=== PATIENT | female | born 1985 | race African-American/Black ===

== ENCOUNTER 2016-12-13 09:05 | Inpatient (IN) | payer MEDICAID ==
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
[2016-12-13 09:59] LABS: BACTERIA 1+ /hpf (NONE SEEN); COLOR YELLOW; LEUKOCYTE ESTERASE,URINE 2+ (NEGATIVE); MUCUS 2+ /lpf (NONE-1+); NITRITE,URINE POSITIVE (NEGATIVE); WBC,URINE 50-182 /hpf (0-3)
[2016-12-13] MEDS ORDERED: NS 1,000 ML IV ONE (10:19)
[2016-12-13] MEDS ORDERED: KETAMINE 100 MG/10 ML SYR IVP ONE (10:20)
[2016-12-13 10:42] LABS: % IMMATURE GRANULYOCYTES 0.2 % (0.0-1.1); ABSOLUTE IMMATURE GRANULOCYTES 0.02 10^3/uL (0.00-0.10); ADD DIFF? NO; ADD MORPH? NO; ADD SCAN? NO; ATYPICAL LYMPHOCYTE FLAG 0 (0-99); FRAGMENT RBC FLAG 0 (0-99); HEMATOCRIT 41.9 % (38.0-47.0); HEMOGLOBIN 13.7 g/dL (12.6-16.3); LEFT SHIFT FLG 0 (0-99); LIPEMIA HEMOLYSIS FLAG 80 (0-99); MEAN CELL HEMOGLOBIN 26.2 pg (27.9-34.1); MEAN CELL HEMOGLOBIN CONCENTR. 32.7 g/dL (32.4-36.7); MEAN CELL VOLUME 80.3 fL (81.5-99.8); MEAN PLATELET VOLUME 9.2 fL (8.7-11.7); PLATELET CLUMPS FLAG 10 (0-99); PLATELET COUNT 226 10^3/uL (150-400); RED BLOOD CELL COUNT 5.22 10^6/uL (4.18-5.33); RED CELL DISTRIBUTION WIDTH 14.6 % (11.5-15.2)
[2016-12-13 10:51] LABS: APTT 28.6 SEC (23.0-38.0); INR 1.21 (0.83-1.16); PROTIME(PATIENT) 15.3 SEC (12.0-15.0)
[2016-12-13 10:57] LABS: ALANINE AMINOTRANSFERASE 58 IU/L (9-52); ALBUMIN 3.8 g/dL (3.5-5.0); ALKALINE PHOSPHATASE 92 IU/L (38-126); ANION GAP 15 mEq/L (8-16); ASPARTATE AMINOTRANSFERASE 35 IU/L (14-46); BILIRUBIN,TOTAL 0.7 mg/dL (0.1-1.4); BILIRUBIN-CONJUGATED 0.4 mg/dL (0.0-0.5); BILIRUBIN-UNCONJUGATED 0.3 mg/dL (0.0-1.1); CALCIUM 8.6 mg/dL (8.5-10.4); CARBON DIOXIDE 20 mEq/l (22-31); CHLORIDE 104 mEq/L (97-110); CREATININE 0.9 mg/dL (0.6-1.0); GLOMERULAR FILTRATION RATE > 60; GLUCOSE 92 mg/dL (70-100); POTASSIUM 3.6 mEq/L (3.5-5.2); SODIUM 139 mEq/L (134-144); TOTAL PROTEIN 6.7 g/dL (6.3-8.2)
[2016-12-13] MEDS ORDERED: IOPAMIDOL (ISOVUE-300) 100 ML BTL ONE (11:04)
[2016-12-13] MEDS ORDERED: fentaNYL 100 MCG/2 ML INJ IVP ONE (11:11)
[2016-12-13] MEDS ORDERED: ONDANSETRON DISINTEGRATING 4 MG TAB PO PRN ×2 (14:06→14:18)
[2016-12-13] MEDS ORDERED: HYDROmorphONE/DILAUDID 1 MG/ML INJ IVP PRN (14:14)
[2016-12-13] MEDS ORDERED: ACETAMINOPHEN 325 MG TAB PO SCH (14:15)
[2016-12-13] MEDS ORDERED: LR 1,000 ML IV SCH (14:30)
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
[2016-12-13] MEDS ORDERED: HYDROmorphone HCL/NS/PF 0.4 MG/2 ML SYR IVP PRN (15:37)
[2016-12-13] MEDS: KETOROLAC 30 MG/1 ML SDV IVP SCH ×2 (16:07→20:01)
[2016-12-13] MEDS: CYCLOBENZAPRINE 10 MG TAB PO PRN ×2 (16:07→20:15)
[2016-12-13] MEDS: ACETAMINOPHEN 500 MG TAB PO SCH ×2 (16:07→21:51)
[2016-12-13] MEDS: LR 1,000 ML IV SCH (17:03)
[2016-12-14] MEDS: LR 1,000 ML IV SCH (01:30)
[2016-12-14] MEDS: KETOROLAC 30 MG/1 ML SDV IVP SCH ×2 (01:58→09:12)
[2016-12-14 04:40] LABS: ANION GAP 7 mEq/L (8-16); CALCIUM 7.8 mg/dL (8.5-10.4); CARBON DIOXIDE 23 mEq/l (22-31); CHLORIDE 108 mEq/L (97-110); CREATININE 0.7 mg/dL (0.6-1.0); GLOMERULAR FILTRATION RATE > 60; GLUCOSE 109 mg/dL (70-100); POTASSIUM 3.8 mEq/L (3.5-5.2); SODIUM 138 mEq/L (134-144)
[2016-12-14 04:41] LABS: % IMMATURE GRANULYOCYTES 0.5 % (0.0-1.1); ABSOLUTE IMMATURE GRANULOCYTES 0.03 10^3/uL (0.00-0.10); ADD DIFF? NO; ADD MORPH? NO; ADD SCAN? NO; ATYPICAL LYMPHOCYTE FLAG 0 (0-99); FRAGMENT RBC FLAG 0 (0-99); HEMATOCRIT 33.9 % (38.0-47.0); HEMOGLOBIN 10.7 g/dL (12.6-16.3); LEFT SHIFT FLG 0 (0-99); LIPEMIA HEMOLYSIS FLAG 80 (0-99); MEAN CELL HEMOGLOBIN 25.7 pg (27.9-34.1); MEAN CELL HEMOGLOBIN CONCENTR. 31.6 g/dL (32.4-36.7); MEAN CELL VOLUME 81.5 fL (81.5-99.8); MEAN PLATELET VOLUME 9.8 fL (8.7-11.7); PLATELET CLUMPS FLAG 0 (0-99); PLATELET COUNT 175 10^3/uL (150-400); RED BLOOD CELL COUNT 4.16 10^6/uL (4.18-5.33); RED CELL DISTRIBUTION WIDTH 14.6 % (11.5-15.2)
[2016-12-14] MEDS: ACETAMINOPHEN 500 MG TAB PO SCH ×3 (05:59→23:39)
[2016-12-14] MEDS: CYCLOBENZAPRINE 10 MG TAB PO PRN ×3 (06:00→23:40)
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
[2016-12-14] MEDS: CIPROFLOXACIN 500 MG TAB PO SCH ×2 (10:20→19:52)
[2016-12-14] MEDS: HYDROmorphONE/DILAUDID 2 MG TAB PO PRN ×3 (10:20→19:52)
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
[2016-12-14] MEDS ORDERED: ONDANSETRON 4 MG/2 ML VIAL IVP PRN ×2 (12:20→12:22)
[2016-12-14] MEDS: IBUPROFEN 200 MG TAB PO PRN ×2 (13:23→19:53)
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
[2016-12-14 23:27] VITALS: RESP 18
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
[2016-12-15] MEDS: ACETAMINOPHEN 500 MG TAB PO SCH (06:18)
[2016-12-15] MEDS: IBUPROFEN 200 MG TAB PO PRN (06:18)
[2016-12-15 07:36] VITALS: BP 114/71; PULSE 96; TEMP 98.7; O2SAT 97
[2016-12-15] MEDS: CIPROFLOXACIN 500 MG TAB PO SCH (09:47)
[2016-12-15] MEDS: CYCLOBENZAPRINE 10 MG TAB PO PRN (09:48)
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
== END 2016-12-15 11:35 | disposition home or self-care (01) | DRG 699 ==
LOC: EDUNIT# → EEVIPCON 09:05 → F3N 15:35 → OBSVTOIN 12-14 16:25
PROVIDERS: ADMIT Surgery; ATTEND Surgery
DX: S37.052A Moderate laceration of left kidney, initial encounter (principal); Y04.0XXA Assault by unarmed brawl or fight, initial encounter; T74.11XA Adult physical abuse, confirmed, initial encounter; Y07.03 Male partner, perpetrator of maltreatment and neglect; Y92.89 Other specified places as the place of occurrence of the external cause; N39.0 Urinary tract infection, site not specified
CPT/HCPCS: 92523-GN; 96365; 97116-GP; 97161-GP; 97165-GO; 97530-GP; G0378; J0696; J1170; J1885; J2405; J3010; Q9967

== ENCOUNTER 2017-07-21 17:05 | Emergency (ER) | payer MEDICAID ==
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
[2017-07-21 17:32] VITALS: BP 139/101
== END 2017-07-21 17:42 ==
LOC: EDUNIT#

== ENCOUNTER 2017-10-16 09:52 | Emergency (ER) | payer MEDICAID ==
[2017-10-16 09:55] VITALS: BP 114/77
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
== END 2017-10-16 10:15 ==
DX: S05.11XD Contusion of eyeball and orbital tissues, right eye, subsequent encounter (principal); O9A.219 Injury, poisoning and certain other consequences of external causes complicating pregnancy, unspecified trimester; Z3A.00 Weeks of gestation of pregnancy not specified; Y09 Assault by unspecified means

== ENCOUNTER 2018-01-12 12:35 | Observation (INO) | payer MEDICAID ==
[2018-01-12 13:37] LABS: PLATELET COUNT 219 10^3/uL (150-400)
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
[2018-01-12 20:02] LABS: HEPATITIS B SURFACE ANTIGEN NEGATIVE (NEGATIVE)
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
[2018-01-13] MEDS ORDERED: CEPHALEXIN 250 MG CAP PO SCH (10:00)
== END 2018-01-13 16:25 | disposition home or self-care (01) ==
LOC: FLD 12:35 → EEVIPCON 12:35
PROVIDERS: ADMIT Obstetrics & Gynecology; ATTEND Obstetrics & Gynecology
DX: Z03.79 Encounter for other suspected maternal and fetal conditions ruled out (principal); Z3A.19 19 weeks gestation of pregnancy; Z91.419 Personal history of unspecified adult abuse
CPT/HCPCS: 76805; G0378; 80305

== ENCOUNTER 2018-02-16 18:42 | Observation (INO) | payer MEDICAID ==
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
== END 2018-02-16 20:08 | disposition home or self-care (01) ==
LOC: FLD 18:42
PROVIDERS: ADMIT Obstetrics & Gynecology; ATTEND Obstetrics & Gynecology
DX: O76 Abnormality in fetal heart rate and rhythm complicating labor and delivery (principal); Z3A.24 24 weeks gestation of pregnancy

== ENCOUNTER 2018-05-27 14:22 | Emergency (ER) | payer MEDICAID ==
[2018-05-27 14:37] VITALS: BP 122/80
--- NOTE | 2018-05-27 14:43 | EDPHY ---
H & P Stated Complaint: Tooth ache Time Seen by Provider: 05/27/18 14:42 - Personal History LMP (Females 10-55): Current Tetanus/Diphtheria Vaccine: Yes Tetanus Vaccine Date: 2011 - Medical/Surgical History Hx Asthma: No Hx Chronic Respiratory Disease: No Hx Diabetes: No Hx Cardiac Disease: No Hx Renal Disease: No Hx Cirrhosis: No Hx Alcoholism: No Hx HIV/AIDS: No Hx Splenectomy or Spleen Trauma: No Other PMH: Kidney Laceration - Social History Smoking Status: Former smoker Constitutional: Initial Vital Signs Temperature (C) 36.6 C 05/27/18 14:35 Heart Rate 100 05/27/18 14:35 Respiratory Rate 18 05/27/18 14:35 Blood Pressure 122/80 H 05/27/18 14:35 O2 Sat (%) 96 05/27/18 14:35 O2 Delivery Mode Room Air Allergies/Adverse Reactions: No Known Allergies Allergy (Verified 05/27/18 14:37) Home Medications: Medication Instructions Recorded 02/04/18 Vit27&Calcium/Iron/FA 1 each PO DAILY 02/16/18 [ Rx 1 Tablet (RX)] Cephalexin [Keflex (RX)] 500 mg PO TID #30 cap 05/27/18 Medical Decision Making ED Course/Re-evaluation: CHIEF COMPLAINT: Tooth ache HISTORY OF PRESENT ILLNESS: The patient is a 33 y/o female who is very complaining of a toothache. She is less concerned about the pain, as she is about the infection. She denies recent trauma or injury. No fever, headache, body aches, lightheadedness, chest pain, heart palpitations, shortness of breath, cough, abdominal pain, urinary or bowel complaints, numbness, paresthesias. REVIEW OF SYSTEMS: A 10 point review of systems was performed and is negative with the exception of the elements mentioned in the history of present illness. PHYSICAL EXAM: HR, BP, O2 Sat, RR. Temp noted General Appearance: Alert, well hydrated, appropriate, and non-toxic appearing. Head: Atraumatic without scalp tenderness or obvious injury Eyes: Pupils equal, round, reactive to light and accommodation, EOMI, no trauma , no injection. Ears: Clear bilaterally, no perforation, normal landmarks Nose: Atraumatic, no rhinorrhea, clear. Throat: Mild erythema and inflammation of her left last molar. There is no erythema or exudates, no lesions, normal tonsils, mucus membranes moist. Neck: Supple, 2+ carotid upstroke, nontender, no lymphadenopathy. Respiratory: No retractions, no distress, no wheezes, and no accessory muscle use. Lungs are clear to auscultation bilaterally. Cardiovascular: Regular rate and rhythm, no murmurs, rubs, or gallops. Bilateral carotid, radial, dorsalis pedis, and posterior tibial pulses intact. Good capillary refill all extremities. Gastrointestinal: Abdomen is soft, nontender, non-distended, no masses, no rebound, no guarding, no peritoneal signs. Musculoskeletal: Normal active ROM of all extremities, atraumatic. Neurological: Alert, appropriate, and interactive. The patient has normal DTRs and non-focal cranial nerves, motor, sensory, and cerebellar exam. Skin: No rashes, good turgor, no nodules on palpation. Past medical history: Denies Past surgical history: Mercer tooth extraction Family history: Denies Social history: Single, not employed, transient DIAGNOSTICS/PROCEDURES/CRITICAL CARE TIME: Not indicated DIFFERENTIAL DIAGNOSIS: The differential diagnosis for the patient's toothache included but was not limited to dental infection, dental abscess, dental trauma, gingivitis. MEDICAL DECISION MAKING: The patient is a 33 y/o female who is very presenting with a toothache. She is less concerned about the pain, as she is about the infection. On exam there is mild erythema and inflammation of her left last molar. I have prescribed her Keflex and advised her to follow up with a dentist. Return precautions provided; patient is comfortable with this plan. Departure - Departure Disposition: Home, Routine, Self-Care Clinical Impression: Tooth pain, Tooth infection Condition: Good Instructions: Toothache (ED) Additional Instructions: 1. Take Keflex as prescribed. 2. Follow-up with your dentist within one week. 3. Return to the ED for fever, difficulty swallowing, increase in swelling or other concerns. Referrals: [facility] [Outside] - As per Instructions Prescriptions: Cephalexin [Keflex (RX)] 500 mg PO TID #30 cap Report Scribed for: Ernie Reich Report Scribed by: Daysi Sharma Date of Report: 05/27/18 Time of Report: 14:44
== END 2018-05-27 14:52 | disposition home or self-care (01) ==
DX: K04.7 Periapical abscess without sinus (principal); K08.89 Other specified disorders of teeth and supporting structures

== ENCOUNTER 2018-05-29 13:05 | Inpatient (IN) | payer MEDICAID ==
[2018-05-29] MEDS ORDERED: MISOPROSTOL 200 MCG TAB PR PRN (14:14)
[2018-05-29] MEDS ORDERED: LIDOCAINE 1% 300 MG/30 ML SDV SC PRN (14:14)
[2018-05-29] MEDS ORDERED: OLIVE OIL 118 ML BTL MISC PRN (14:14)
[2018-05-29] MEDS ORDERED: OXYTOCIN/RINGERS LACTATE 1,000 ML IV PRN (14:14)
[2018-05-29] MEDS ORDERED: EPSOM SALT 454 GM TP PRN (14:14)
[2018-05-29] MEDS ORDERED: IBUPROFEN 600 MG TAB PO PRN (14:14)
[2018-05-29 14:32] LABS: PLATELET COUNT 250 10^3/uL (150-400)
[2018-05-29] MEDS ORDERED: MISOPROSTOL 200 MCG TAB ONE (14:50)
[2018-05-29] MEDS ORDERED: TERBUTALINE SULFATE 1 MG/ML VIAL ONE (14:50)
[2018-05-29] MEDS ORDERED: LIDOCAINE 1% 300 MG/30 ML SDV ONE (14:50)
[2018-05-29] MEDS ORDERED: OLIVE OIL 118 ML BTL MISC ONE (14:50)
[2018-05-29] MEDS ORDERED: AMMONIA AROMATIC 1 EACH AMP IH ONE (14:50)
[2018-05-29] MEDS ORDERED: OXYTOCIN 10 UNIT/ML VIAL ONE (14:50)
[2018-05-29] MEDS ORDERED: OXYTOCIN/RINGERS LACTATE 30 UNIT/500 ML BAG IV ONE (16:08)
[2018-05-29] MEDS: LR 1,000 ML IV PRN ×2 (16:20→20:28)
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
[2018-05-29] MEDS ORDERED: LR 500 ML IV PRN (17:59)
[2018-05-29] MEDS ORDERED: OXYTOCIN/RINGERS LACTATE 500 ML IV SCH (18:00)
--- NOTE | 2018-05-29 22:25 | OBPROG ---
Labor Progress Note Assessment/Plan: Assessment: 33 at 39 wk, undergoing pitocin augmentation. Slow progress. Plan: AROM performed - clear fluid. Anticipate vag delivery. Bree Rodas MD, FACOG 05/29/18 22:23 Subjective/Intrapartum Course: 05/29/18 22:25 Pt feeling contractions more. Frustrated labor is taking so long for her. Agrees to proceed with AROM. Objective: 05/29/18 14:27 Patient ABO/Rh O POSITIVE 05/29/18 14:27 36.6 16 82 119/75 140 mod variability, occasional variable and early appearing decels. SVE 4/70/-3 AROM clear - SVE Dilation (cm): 4 Effacement (%): 75 Station: -3 Membranes: AROM Amniotic Fluid Color: Clear - Contraction Pattern Assessment Current Contraction Pattern: Regular - FHR Assessment Ernandez FHR (bpm): 140 FHR Pattern Variability: Moderate FHR Category: 1 - Procedures Non-surgical Procedures: Amniotomy (clear) Oxytocin Orders Assessment - Pre-Induction/Augmentation Assessment Gestational Age: 39 week(s) and 1 day(s) ICD10 Worksheet Patient Problems: Problems Problem Status Onset Irregular contractions Acute Acute Skin infection Acute Vaginal bleeding in patient at less than 20 weeks gestation Acute - ICD10 Problem Qualifiers (1) Irregular contractions
[2018-05-29] MEDS ORDERED: BUPIVACAINE 0.25% 10 ML SDV ONE (22:35)
[2018-05-29] MEDS ORDERED: fentaNYL 200 MCG, BUPIVACAINE 0.5% 20 ML in NS 100 ML EP SCH (23:00)
[2018-05-29] MEDS ORDERED: PHENYLEPHRINE HCL 100 MCG/ML SYR IVP PRN (23:04)
[2018-05-29] MEDS ORDERED: NALOXONE HCL 0.4 MG/ML INJ IVP PRN (23:04)
[2018-05-29] MEDS ORDERED: METOCLOPRAMIDE 10 MG/2 ML VIAL IVP PRN (23:04)
[2018-05-29] MEDS ORDERED: ONDANSETRON 4 MG/2 ML VIAL IVP PRN (23:04)
--- NOTE | 2018-05-29 23:04 | POSTANESTH ---
Post Anesthetic Evaluation Cardiovascular Status: Normal, Stable Respiratory Status: Normal, Stable Level of Consciousness/Mental Status: Can Participate in Eval Pain Control: Adequate, Prn Tx Ordered Nausea/Vomiting Control: Adequate, Prn Tx Ordered Complications Possibly Related to Anesthesia: None Noted
--- NOTE | 2018-05-29 23:04 | PREANESOB ---
Obstetric Pre-Anesthesia Info - General Info Proposed Procedure: KRISTA : 7 Para: 4 MARIIA: 06/04/18 Gestational Age: 39 week(s) and 1 day(s) - Info Status: Full Term Monitors: External FHR Pattern: Reassuring - Labor Status Cervical Dilation per last OB SVE: 4 Station per last OB SVE: -3 Amniotic Fluid Color: Clear Indications for Labor Analgesia: Pain Control Labor Epidural: Proposed Anesthesia Allergies/Adverse Reactions: Allergy/AdvReac Type Severity Reaction Status Date / Time No Known Allergies Allergy Verified 05/27/18 14:37 Home Medications: Medication Instructions Recorded Vit27&Calcium/Iron/FA 1 each PO DAILY 02/16/18 [ Rx 1 Tablet (RX)] Cephalexin [Keflex (RX)] 500 mg PO TID #30 cap 05/27/18 Herbals/Supplements -Info Only 05/29/18 Iron 05/29/18 Visit Medications: Generic Name Dose Route Start Last Admin Trade Name Freq PRN Reason Stop Dose Admin Lactated Ringer's 1,000 mls @ 0 mls/hr 05/29/18 14:14 05/29/18 20:28 Lr IV 05/30/18 14:13 1,000 mls PRN PRN Administration SEE PROTOCOL CONDITIONS Protocol Per Protocol Oxytocin/Lactated Ringer's 1,000 mls @ 125 mls/hr 05/29/18 14:14 Pitocin 20 Units/Lr (Premix) IV PRN PRN Post bleeding Lactated Ringer's 500 mls @ 500 mls/hr 05/29/18 17:59 Lr IV 05/30/18 18:00 PRN PRN Maternal Hypotension Oxytocin/Lactated Ringer's 500 mls @ 0 mls/hr 05/29/18 18:00 Pitocin 30 Units/Lr (Premix) IV 11/25/18 17:59 CONT ON LICENSE OF [facility] Protocol Per Protocol Fentanyl 200 mcg/ Bupivacaine 100 mls @ 0 mls/hr 05/29/18 23:00 HCl 20 ml/ Sodium Chloride EP 06/08/18 22:59 CONT ON LICENSE OF [facility] Protocol As Directed Ibuprofen 600 mg 05/29/18 14:14 Motrin PO ONCE PRN post , pain Lidocaine HCl 300 mg 05/29/18 14:14 Lidocaine Hcl 1% SC 11/25/18 14:13 ONCE PRN episiotomy Magnesium Sulfate 454 gm 05/29/18 14:14 Epsom Salt TP 11/25/18 14:13 Q1H PRN perineal discomfort Misoprostol 800 - 1,000 mcg 05/29/18 14:14 Cytotec CA ONCE PRN Vaginal Atony/Bleeding Truman Oil 118 ml 05/29/18 14:14 Sweet Oil MISC 11/25/18 14:13 ONCE PRN perineal massage Discontinued Medications Generic Name Dose Route Start Last Admin Trade Name Essence PRN Reason Stop Dose Admin Ammonia (Aromatic Spirit) Confirm 05/29/18 14:50 Ammonia Aromatic Administered 05/29/18 14:51 Dose 1 each IH .STK-MED ONE Bupivacaine HCl Confirm 05/29/18 22:35 Sensorcaine 0.25% Sdv Administered 05/29/18 22:36 Dose 10 ml .ROUTE .STK-MED ONE Lidocaine HCl Confirm 05/29/18 14:50 Lidocaine Hcl 1% Administered 05/29/18 14:51 Dose 300 mg .ROUTE .STK-MED ONE Misoprostol Confirm 05/29/18 14:50 Cytotec Administered 05/29/18 14:51 Dose 1,000 mcg .ROUTE .STK-MED ONE Truman Oil Confirm 05/29/18 14:50 Sweet Oil Administered 05/29/18 14:51 Dose 118 ml MISC .STK-MED ONE Oxytocin Confirm 05/29/18 14:50 Pitocin Administered 05/29/18 14:51 Dose 40 unit .ROUTE .STK-MED ONE Oxytocin/Lactated Ringer's Confirm 05/29/18 16:08 Pitocin 30 Units/Lr (Premix) Administered 05/29/18 16:09 Dose 30 unit IV .STK-MED ONE Terbutaline Sulfate Confirm 05/29/18 14:50 Brethine Administered 05/29/18 14:51 Dose 1 mg .ROUTE .STK-MED ONE - Anesthesia History Response to Local Anesthetics: Not Applicable Anesthesia & Operative History: No Prior Problems Family Anesthesia History: Not Applicable - Social History Substance Use/Abuse: Drug Use/Abuse - Vital Signs Height/Weight (Nursing): Height 162.56 cm Weight 77.111 kg - Focused Exam Neck exam: FROM Mallampati Score: Class 1 Mouth exam: normal dental/mouth exam Pulmonary: no respiratory distress Cardiovascular: regular rate and rhythym Labs: 05/29/18 14:27 Patient ABO/Rh O POSITIVE 05/29/18 14:27 - Plan Consent Signed and on Chart: Yes Patient/Guardian Understands and Agrees to Plan: Yes Urgent/Emergent Case: Anson mcknight completed preop but documented later for safe timely pt care
[2018-05-29] MEDS ORDERED: LR 500 ML IV SCH (23:30)
[2018-05-29] MEDS ORDERED: HYDROCORTISONE 0.5% CREAM TP PRN (23:41)
--- NOTE | 2018-05-29 23:50 | OBDEL ---
Info Type: Vaginal Presentation at Delivery: Vertex L&D Analgesia/Anesthesia Type: Epidural GBS+: No Intrapartum Medications: Generic Name Dose Route Start Last Admin Trade Name Freq PRN Reason Stop Dose Admin Lactated Ringer's 1,000 mls @ 0 mls/hr 05/29/18 14:14 05/29/18 20:28 Lr IV 05/30/18 14:13 1,000 mls PRN PRN Administration SEE PROTOCOL CONDITIONS Protocol Per Protocol [place] Oil 118 ml 05/29/18 14:14 05/29/18 23:12 Sweet Oil MISC 11/25/18 14:13 1 btl ONCE PRN Administration perineal massage Phenylephrine HCl 100 mcg 05/29/18 23:04 05/29/18 23:06 Neosynephrine IVP 11/25/18 23:03 100 mcg .Q2M PRN Administration Hypotension - Hospital Course Intrapartum: 05/29/18 22:25 Pt feeling contractions more. Frustrated labor is taking so long for her. Agrees to proceed with AROM. Indications for Delivery: Spontaneous Labor (augmented with pitocin) Vaginal Delivery - Delivery Provider Delivery Physician/CNM: Bree Rodas - Labor and Delivery Onset of Contractions Date: 05/29/18 Onset of Contractions Time: 11:30 Onset of Contractions Type: Augmented Rupture of Membranes Date: 05/29/18 Rupture of Membranes Time: 21:34 Rupture of Membranes Type: Artificial Amniotic Fluid Color: Clear Dilation Complete Date: 05/29/18 Dilation Complete Time: 23:10 Placenta Delivery Date: 05/29/18 Placenta Delivery Time: 23:23 Total Hours of Labor: 11 Non-surgical Procedures: Amniotomy (clear) Laceration: Other (Specify) (a couple superficial abrasions, hemostatic) Vaginal Sponge Count Correct: Yes Vaginal Needle Count Correct: Yes Vaginal Sweep Performed: Yes EBL: 300 Delivery Events: Nuchal Cord Delivery Comment: Pt's contractions were augmented with pitocin after arriving in prodromal labor. AROM performed at 4 cm dilated. She had an epidural placed at her request, and was completely dilated at 2310. She pushed and had spontaneous delivery of the vertex, JUSTIN, over an intact perineum at 2314. Bulb suctioning was performed on the perineum. One nuchal cord was easily reduced, followed by easy delivery of the body to the maternal abdomen. The cord was clamped and cut after a minute delay. The placenta delivered spontaneously at 2323, and appeared complete and intact, with a true knot in the cord. Inspection of the vulva and vagina revealed 2 superficial abrasions which were hemostatic. The patient was cleaned up with soap and water. Sponge, lap and needle counts were correct x 2. The pt and baby were left stable in the room with RN in attendance. Bree Rodas MD, FACOG - Medications Labor Augmentation/Induction Methods Used: Pitocin Labor Augmentation/Induction Indication: Inadequate Contraction Frequency, Inadequate Contraction Strength Ranier Data MARIIA: 06/04/18 Gestational Age: 39 week(s) and 1 day(s) Ernandez Delivery Date: 05/29/18 Delivery Time: 23:14 (Sharmaine) Sex of : Male Score (1 Min): 8 Score (5 Min): 9 ICD10 Worksheet Patient Problems: Problems Problem Status Onset Irregular contractions Acute Marijuana use Acute Normal vaginal delivery Acute Acute Skin infection Acute Vaginal bleeding in patient at less than 20 weeks gestation Acute - ICD10 Problem Qualifiers (1) Irregular contractions (2) Marijuana use (3) Normal vaginal delivery
[2018-05-30] MEDS: ACETAMINOPHEN 500 MG TAB PO PRN ×3 (02:11→18:13)
--- NOTE | 2018-05-30 07:37 | POSTANESTH ---
Post Anesthetic Evaluation Cardiovascular Status: Normal, Stable Respiratory Status: Normal, Stable Level of Consciousness/Mental Status: Can Participate in Eval Pain Control: Adequate, Prn Tx Ordered Nausea/Vomiting Control: Adequate, Prn Tx Ordered Complications Possibly Related to Anesthesia: None Noted Notes: No adverse effects from KRISTA. Able to ambulate, tolerating PO. Pleased with pain relief from epidural.
[2018-05-30] MEDS: DOCUSATE SODIUM 100 MG CAP PO PRN ×2 (08:19→23:28)
[2018-05-30] MEDS: IBUPROFEN 600 MG TAB PO PRN ×3 (12:22→23:29)
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
[2018-05-31 10:22] VITALS: BP 105/71
--- NOTE | 2018-05-31 12:01 | OBPP ---
Progress Note Assessment/Plan: Assessment: 33 y/o PPD #2 s/p doing well Plan: D/c home today with Rx Ibuprofen. Follow up @ [facility] 3 and 6 weeks, and she will want to have a Paraguard MARIAN. 05/31/18 12:00 Subjective/ Course: 05/31/18 11:58 Pt is doing well this am. She has min pain controlled with Tylenol and Ibuprofen. She has min lochia, is ambulating and voiding without difficulty. Breast feeding is going well and her milk is coming in. She is ready to d/c home today and has all of the supplies she needs for the baby. Objective: 05/30/18 05:40 Patient ABO/Rh O POSITIVE 05/29/18 14:27 Temp Pulse Resp BP Pulse Ox 36.7 C 90 16 105/71 96 05/31/18 08:00 05/31/18 08:00 05/31/18 08:00 05/31/18 08:00 05/30/18 21:52 Uterine Position/Fundal Height: Umbilicus -2 Uterine Tone: Firm Physical Exam - Physical Exam General Appearance: alert, no apparent distress Neck: non-tender, full range of motion, supple Respiratory: chest non-tender, lungs clear, normal breath sounds Cardiac/Chest: regular rate, rhythm Abdomen: normal bowel sounds Extremities: swelling (no), Silvio's sign (neg)
--- NOTE | 2018-05-31 12:04 | OBGCSDC ---
General Delivery Information - General Info : 7 Para: 5 Abortions: 2 Type: Vaginal L&D Analgesia/Anesthesia Type: Epidural Admission Date: 05/29/18 Labs: Patient ABO/Rh O POSITIVE 05/29/18 14:27 Hct 35.1 % (38.0-47.0) L 05/30/18 05:40 - Hospital Course Intrapartum: 05/29/18 22:25 Pt feeling contractions more. Frustrated labor is taking so long for her. Agrees to proceed with AROM. : 05/31/18 11:58 Pt is doing well this am. She has min pain controlled with Tylenol and Ibuprofen. She has min lochia, is ambulating and voiding without difficulty. Breast feeding is going well and her milk is coming in. She is ready to d/c home today and has all of the supplies she needs for the baby. Vaginal - Delivery Provider Delivery Physician/CNM: Bree Rodas - Diagnosis Labor: Augmented Rupture of Membranes Type: Artificial Amniotic Fluid Color: Clear Laceration: Other (Specify) (a couple superficial abrasions, hemostatic) Delivery Events: Nuchal Cord - Procedures Non-surgical Procedures: Amniotomy (clear) - Delivery Non-surgical Procedures: Amniotomy (clear) EBL: 300 Data MARIIA: 06/04/18 Gestational Age: 39 week(s) and 3 day(s) Ernandez Delivery Date: 05/29/18 Delivery Time: 23:14 Sex of : Male Weight (gm): 3175 g Score (1 Min): 8 Score (5 Min): 9 Discharge Information - Discharge Information Prescriptions: Ibuprofen [Motrin (*)] 600 mg PO Q6HRS PRN #30 tab PRN Reason: Pain, Mild Able To Take Po Condition: Good Instruction/Follow Up: Two Weeks, Six Weeks
[2018-05-31] MEDS: ACETAMINOPHEN 500 MG TAB PO PRN (12:55)
[2018-05-31] MEDS: IBUPROFEN 600 MG TAB PO PRN (12:55)
--- NOTE | 2018-05-31 14:32 | ASMTCMCOM ---
CM Note CM Note Notes: Patient and her son have been scheduled for a follow up appointment tomorrow with [facility]. They will be seen by Edilia Askew (purple pod) at 8:20 on June 01, 2018. Patient will also be followed by the mom/baby program with [facility]. Valeri Herminio will visit with Mil and Romaine on May at their home : [address], [place]. Mil gave her phone number to Valeri so they can communicate if there are any questions before the home visit.Mil is aware the medical appointments are of high importance for Sharmaine and if she does not keep the appointments CPS will be notified. Mil has transport to the appointments through her friend Brielle who lives inthe same apartment complex. Dr. Brewster has been notified of the follow up appointments. Patient will discharge today. CM available if any further issues or needs arise. Date Signed: 05/31/2018 02:31 PM Electronically Signed By:Catherine Qiu LCSW
--- NOTE | 2018-05-31 14:38 | ASMTDCNOTE ---
Case Management Discharge Discharge Order Complete? Answers: Yes Patient to Obtain Answers: Independently Medications Transportation Arranged Answers: Family/Friends Discharge Comments Notes: Patient is discharging today to her apartment. She has followup appointments with [facility] (06-01-18 @ 8:20 AM) and [facility] will do a home visit on 06-02-18 @ 10:00 AM to enroll the patient in their mom/baby program for ongoing services. Dr. Brewster was notified of the follow up plan for the patient and her new son. No further needs at this time. Date Signed: 05/31/2018 02:38 PM Electronically Signed By:Catherine Qiu LCSW
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
== END 2018-05-31 14:30 | disposition home or self-care (01) | DRG 560 ==
LOC: FLD 13:05 → OBSVTOIN 14:15 → FOB 05-30 02:15
PROVIDERS: ADMIT Hospitalist; ATTEND Hospitalist
PROC: 10907ZC Drainage of Amniotic Fluid, Therapeutic from Products of Conception, Via Natural or Artificial Opening (ICD-10-PCS; principal; 2018-05-29)
PROC: 10E0XZZ Delivery of Products of Conception, External Approach (ICD-10-PCS; principal; 2018-05-29)
DX: O69.82X0 Labor and delivery complicated by other cord entanglement, without compression, not applicable or unspecified (principal); Z37.0 Single live birth; Z3A.39 39 weeks gestation of pregnancy
CPT/HCPCS: G0480; J2590; J3010; J3105